=== PATIENT | female | born 1960 | race Two or more races ===

== ENCOUNTER 2022-10-03 00:06 | Emergency (ER) | payer MEDICAID ==
[~2022-10-03] VITALS: Ht 160 cm; Wt 100.0 kg
[2022-10-03 00:14] VITALS: BP 139/68
[2022-10-03 00:55] LABS: Basophils # (auto) 0.1 10 ^3/uL (0-0.2); Basophils % (auto) 0.9 % (0.0-2.0); Hemoglobin 12.8 g/dL (12.2-16.2); Lymphocytes # (auto) 4.8 10 ^3/uL (0.4-5.4); Lymphocytes % (auto) 44.4 % (10.0-50.0); Mean Corpuscular Hemoglobin 30.2 pg (28.0-32.0); Mean Corpuscular Hgb Conc. 32.9 g/dL (32.0-36.0); Mean Corpuscular Volume 91.7 fL (80.0-100.0); Monocytes # (auto) 0.6 10 ^3/uL (0-1.3); Monocytes % (auto) 5.6 % (0.0-12.0); Neutrophils # (auto) 4.4 10 ^3/uL (1.6-8.6); Neutrophils % (auto) 40.1 % (37.0-80.0); Nucleated Red Blood Cells % 0.2 %; Red Blood Cells 4.25 10^6/uL (4.0-5.20); Red Cell Distribution Width 14.3 % (11.8-14.3); White Blood Cell 10.9 10^3/uL (4.4-10.8)
[2022-10-03 01:14] LABS: Alanine Aminotransferase 48 U/L (13-56); Albumin 3.5 g/dL (3.4-5.0); Anion Gap 10 (5-15); Aspartate Aminotransferase 28 U/L (15-37); BUN/Creatinine Ratio 26.4; Blood Urea Nitrogen 19 mg/dL (7-18); Calcium 8.5 mg/dL (8.5-10.1); Carbon Dioxide 21 mmol/L (21-32); Chloride 107 mmol/L (98-107); GFR African American 106 mL/min; GFR Non-African American 88 mL/min; Glucose 157 mg/dL (74-106); Sodium 138 mmol/L (136-145)
[2022-10-03 01:16] LABS: Alkaline Phosphatase 114 U/L (45-117); Bilirubin, Total 0.3 mg/dL (0.2-1.0); Total Protein 6.9 g/dL (6.4-8.2)
== END 2022-10-03 04:23 | disposition left against medical advice (07) ==
LOC: EDBD 00:06 → ER 00:25
DX: R06.02 Shortness of breath (principal)
CPT/HCPCS: 36415; 71045; 80053; 83880; 84484; 85025; 93005

== ENCOUNTER 2024-09-24 22:18 | Emergency (ER) | payer MEDICAID ==
[~2024-09-24] VITALS: Ht 160 cm; Wt 108.7 kg
[2024-09-24 23:29] VITALS: BP 160/69; TEMP 98.6
[2024-09-24 23:44] VITALS: PULSE 81; RESP 16; O2SAT 99
[2024-09-25] MEDS: KETOROLAC TROMETH 30 MG/ML 1ML VIAL IM ONE (00:04)
--- NOTE | 2024-09-25 00:05 | ED.PDOC ---
Musculoskeletal HPI Comments 63-year-old female with past medical history pertinent for HTN, hyperlipidemia, DM, asthma, Alzheimer's, presents to ED for right posterior leg pain x6 days, without any other associated symptoms. Per patient's daughter, she was showering her when the patient slipped and then seemed like she pulled a muscle. The daughter denies any fall or impact. Daughter also states that has not been any bruising or swelling. Patient currently rates her pain as 8/10 in severity. The pain radiates from her right buttock to her right knee and is described is a sharp sensation that is intermittent. She denies any back pain, fever, chills, nausea, vomiting, shortness of breath, chest pain. Per patient's daugh ter, she has been using Advil and Tylenol without relief of symptoms. Chief Complaint: Lower Extremity Time Seen by MD: 22:56 Primary Care Provider: Zakk Reviewed Notes: Nurses Notes, Medications, Allergies Allergies: Coded Allergies: Dexamethasone (Verified Allergy, Unknown, 10/03/22) Penicillins (Verified Allergy, Unknown, 10/03/22) Mode of Arrival: Wheelchair Past Medical History PAST MEDICAL HISTORY: Alzheimer, Asthma, DM, HTN Surgical History: Denies all surgeries [employer] History: No Pertinent [employer] History Constitutional: denies: chills, diaphoresis, fatigue, fever, malaise, sweats, weakness, others EENTM: denies: blurred vision, double vision, ear bleeding, ear discharge, ear drainage, ear pain, ear ringing, eye pain, eye redness, hearing loss, mouth pain, mouth swelling, nasal discharge, nose bleeding, nose congestion, nose pain, photophobia, tearing, throat pain, throat swelling, voice changes, others Respiratory: denies: cough, hemoptysis, orthopnea, SOB at rest, shortness of breath, SOB with excertion, stridor, wheezing, others Cardiovascular: denies: chest pain, dizzy spells, diaphoresis, Dyspnea on exertion, edema, irregular heart beat, left arm pain, lightheadedness, palpitations, PND, syncope, others Gastrointestinal: denies: abdomen distended, abdominal pain, blood streaked bowels, constipated, diarrhea, dysphagia, difficulty swallowing, hematemesis, melena, nausea, poor appetite, poor fluid intake, rectal bleeding, rectal pain, vomiting, others Genitourinary: denies: abnormal vagina bleeding, burning, dyspareunia, dysuria, flank pain, frequency, hematuria, incontinence, pain, , vagina discharge, urgency, others Neurological: denies: dizziness, fainting, headache, left sided numbness, left sided weakness, numbness, paresthesia, pre-existing deficit, right sided numbness, right sided weakness, seizure, speech problems, tingling, tremors, weakness, others Musculoskeletal: reports: joint pain; denies: back pain, gout, joint swelling, muscle pain, muscle stiffness, neck pain, others Integumetry: denies: bruises, change in color, change in hair/nails, dryness, laceration, lesions, lumps, rash, wounds, others Allergic/Immunocompromised: denies: Difficulty Healing, Frequent Infections, Hives, Itching, others Hematologic/Lymphatic: denies: anemia, blood clots, easy bleeding, easy bruising, swollen glands, others Endocrine: denies: excessive hunger, excessive sweating, excessive thirst, excessive urination, flushing, intolerance to cold, intolerance to heat, unexplained weight gain, unexplained weight loss, others Psychiatric: denies: anxiety, bipolar disorder, depression, hopeless, panic disorder, schizophrenia, sleepless, suicidal, others All Other Systems: Reviewed and Negative Physical Exam General Appearance: Mild Distress, Normal HEENT: Normal ENT Inspection, Pharynx Normal, TMs Normal Neck: Full Range of Motion, Non-Tender, Normal, Normal Inspection Respiratory: Chest Non-Tender, Lungs Clear, No Accessory Muscle Use, No Respiratory Distress, Normal Breath Sounds Cardiovascular: No Edema, No JVD, No Murmur, No Gallop, Normal Peripheral Pulses, Regular Rate/Rhythm Breast Exam: Deferred Gastrointestinal: No Organomegaly, Non Tender, No Pulsatile Mass, Normal Bowel Sounds, Soft Genitalia: Deferred Pelvic: Deferred Rectal: Deferred Extremities: No calf tenderness, Normal capillary refill, Normal inspection, Normal range of motion, Non-tender, No pedal edema Musculoskeletal : Location: Right Extremity Location: Leg (Tenderness to palpation to the right hamstring region. Negative Homans sign. Normal sensation. No unilateral leg swelling.) Apperance: Normal Neurologic: Alert, rn building II-XII nml as Tested, No Motor Deficits, Normal Affect, Normal Mood, No Sensory Deficits Cerebellar Function: Normal Reflexes: Normal Skin: Dry, Normal Color, Warm Lymphatic: No Adenopathy Was a procedure done? Was a procedure done?: No Differential Diagnosis EXT Differential Diagnosis: Deep Vein Thrombosis, Fracture, Sprain, Dislocation, Strain, Neurovascular injury X-Ray, Labs, Meds, VS Vital Signs Date Time Temp Pulse Resp B/P (MAP) Pulse Ox O2 Delivery O2 Flow Rate FiO2 09/24/24 23:44 81 16 99 Room Air 09/24/24 23:29 98.6 76 15 160/69 (99) 97 98.6 09/24/24 22:36 99.5 81 16 155/78 (103) 99 Current Medications Medications (Trade) Dose Ordered Sig/Roel Route Start Time Stop Time Status Last Admin Ketorolac Tromethamine (Toradol Injection) 30 mg ONCE ONCE IM 09/25/24 00:00 09/25/24 00:01 DC 09/25/24 00:04 X-Ray, Labs, Meds, VS Comment MDM: Patient with history as above presented with right posterior leg pain. History obtained from patient and family. Patient was nontoxic, stable, afebrile, in wheelchair, no acute distress. Exam as above. Reviewed external records. All findings were discussed with the patient. Differential diagnosis considered. Overall presentation is consistent with right posterior leg muscle strain. Low suspicion for fracture, dislocation, jey rovascular injury. Patient was treated with Toradol with improvement in symptoms. Patient was reevaluated and vital signs were reviewed. Consideration was given for admission, but the patient was stable for outpatient management. Prescribed ibuprofen for pain management. Disposition: Discussed the need to follow up diagnostics, including incidental findings. Discharged the patient with instructions to obtain outpatient follow up in 1-2 days of today's symptoms and findings, with strict return precautions if patient develops new or worsening symptoms. This medical document was created using the [employer] dictation system. Although this document has been carefully reviewed, there may still be some phonetic and typographical errors, which are due to imperfections of the software program, and do not reflect any compromise in the patient's medical care. Time of 1ST Reevaluation: 00:40 Reevaluation 1ST: Improved Patient Education/Counseling: Diagnosis, Treatment, Prognosis, Need For Follow Up Family Education/Counseling: Diagnosis, Treatment, Prognosis, Need For Follow Up Departure 1 Departure Time of Disposition: 00:40 Impression: Primary Impression: Muscle strain of gluteal region Qualified Codes: S76.011A - Strain of muscle, fascia and tendon of right hip, initial encounter Additional Impression: Muscle strain of lower extremity Qualified Codes: S86.911A - Strain of unspecified muscle(s) and tendon(s) at lower leg level, right leg, initial encounter Disposition: HOME / SELF CARE / HOMELESS Condition: Fair e-Prescriptions Ibuprofen Micronized (Ibuprofen) 800 Mg Tab 800 MG PO [id number] PRN, #20 TAB Prov: ASA KING 09/25/24 Critical Care Note Critical Care Time?: No Stability Stability form required: No Heart Score Heart Score: Heart Score Response (Comments) Value History N/A 0 EKG N/A 0 Age N/A 0 Risk Factors N/A 0 Troponin N/A 0 Total 0 ASA KING PAC Sep 25, 2024 00:05
[2024-09-25] MEDS ORDERED: IBUP-1455 PO (00:41)
== END 2024-09-25 01:01 | disposition home or self-care (01) ==
LOC: ER 22:18
DX: S76.812A Strain of other specified muscles, fascia and tendons at thigh level, left thigh, initial encounter (principal); J45.909 Unspecified asthma, uncomplicated; E11.9 Type 2 diabetes mellitus without complications; I10 Essential (primary) hypertension; Z88.0 Allergy status to penicillin; Z88.8 Allergy status to other drugs, medicaments and biological substances; X58.XXXA Exposure to other specified factors, initial encounter; Y93.89 Activity, other specified; Y92.89 Other specified places as the place of occurrence of the external cause; Y99.8 Other external cause status
CPT/HCPCS: 96372; 99283; J1885